=== PATIENT | female | born 1960 | race Caucasian/White ===

== ENCOUNTER 2017-12-18 13:29 | Outpatient (CLI) | payer OTHER | END 2017-12-18 13:30 | disposition home or self-care (01) | LOC: LAB.F 13:29 | PROVIDERS: ATTEND Physician Assistant | DX: E83.52 Hypercalcemia (principal) | CPT/HCPCS: 36415; 82310; 83970 ==

== ENCOUNTER 2019-12-18 14:04 | Outpatient (CLI) | payer OTHER | END 2019-12-18 14:05 | disposition home or self-care (01) | LOC: COV 14:04 | PROVIDERS: ATTEND Family Medicine | DX: R50.9 Fever, unspecified (principal) ==